=== PATIENT | male | born 1960 | race Two or more races ===

== ENCOUNTER 2018-06-25 13:41 | Emergency (ER) | payer MEDICAID ==
[~2018-06-25] VITALS: Ht 175.3 cm; Wt 72.1 kg
[2018-06-25 13:45] VITALS: BP 155/90
--- NOTE | 2018-06-25 13:45 | NUR ---
PT BIBRA ON & OFF NUMBNESS OF RIGHT ARM X 1 1/2 YRS,ADMIT TO USING METH LAST NIGHT, PTB IS AAOX4, NOT IN RESPIRATORY DISTRESS, KEPT RESTED AND COMFOTABLE, WILL CONTINUE TO MONITOR.
[2018-06-25] MEDS ORDERED: ASPI-1169 PO (13:48)
[2018-06-25] MEDS ORDERED: FOLI1TAB16 PO (13:50)
[2018-06-25] MEDS ORDERED: SIMV5TAB6 PO (13:50)
--- NOTE | 2018-06-25 14:00 | NUR ---
DR. TAY AT BED SIDE FOR EVAL.
--- NOTE | 2018-06-25 14:34 | NUR ---
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
--- NOTE | 2018-06-25 14:34 | NUR ---
Note meredithterrance in EDM - 06/25/18 at 1449 by SHERIN IV removed. Catheter intact and site benign. Pressure and 4x4 applied to site. No bleeding noted. Patient discharged to home in stable condition. Written and verbal after care instructions given. Patient verbalizes understanding of instruction.
--- NOTE | 2018-06-25 14:51 | NUR ---
IV removed. Catheter intact and site benign. Pressure and 4x4 applied to site. No bleeding noted. Patient discharged to home in stable condition. Written and verbal after care instructions given. Patient verbalizes understanding of instruction.
--- NOTE | 2018-06-25 14:53 | NUR ---
Social service consult requested by Dr. Parker for homelessness and drug resources. Pt. is a 57 year old male who came to [facility] ER for head pain. SW met with pt. bedside. Pt. is alert and oriented x 4. Pt. appears disheveled. Pt's mood is congruent. Pt. is cooperative with SW during the assessment. Pt. states he has been homeless since age 18. Pt. is originally from the [facility]. Pt. is interested in intermediate placement for tonight. Pt. has a history of methamphetamine use but is currently no using at this time. Pt. is using marijuana and cigarettes. Pt. is interested in referrals to drug treatment programs. Pt. is denying any suicidal and homicidal ideations at this time. ISMAEL offered pt. 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 . [place]. ISMAEL gave pt. list of [facility] [phone] [facility], list of referrals to drug treatment programs which include [facility] , [address] [facility] [place]. [place]; and [facility] ,[address] [facility]. ISMAEL also gave pt. list of health clinics :[facility], [address], [address]. [place] Hours: M, T, Th, F 8:30AM-4:30PM walk-ins allowed.Provide medical screening and pharmacy [facility], [address], [address] [place] [address], Hours M-F 8AM-3:30PM,Walk-ins allowed.Provide medical screening and pharmacy and [facility] [address] [address] [place]. [place] [address] , Hours 8AM-4:30PM, Walk-ins allowed. Provide medical screening and pharmacy. ISMAEL encouraged pt. to attend a drug treatment program. ISMAEL informed pt. [facility] has intake hours Thursday through Thursday from 9AM to 4PM. Pt. stated he will follow up with them on Thursday. ISMAEL provided pt. with bus money to take the bus to [address] Homeless Patient Waiver form was signed by pt. and placed in pt's chart. No other social service needs are requested at this time. SW is available, if needed.
== END 2018-06-25 15:00 | disposition home or self-care (01) ==
LOC: ER 13:45
DX: I10 Essential (primary) hypertension (principal); E78.00 Pure hypercholesterolemia, unspecified; F17.200 Nicotine dependence, unspecified, uncomplicated; Z79.82 Long term (current) use of aspirin; Z86.73 Personal history of transient ischemic attack (TIA), and cerebral infarction without residual deficits; Z59.0 Homelessness; Z79.899 Other long term (current) drug therapy
CPT/HCPCS: A4606; Z7610